=== PATIENT | male | born 1990 | race Caucasian/White ===

== ENCOUNTER 2016-05-22 16:22 | Emergency (ER) | payer OTHER ==
[~2016-05-22] VITALS: Ht 185.4 cm; Wt 83.2 kg
[2016-05-22 18:37] VITALS: BP 145/63
== END 2016-05-22 18:16 | disposition home or self-care (01) ==
LOC: EME 16:22
PROC: 0HQEXZZ Repair Left Lower Arm Skin, External Approach (ICD-10-PCS; principal; 2016-05-22)
DX: S51.812A Laceration without foreign body of left forearm, initial encounter (principal); W27.8XXA Contact with other nonpowered hand tool, initial encounter; Y99.0 Civilian activity done for income or pay; F17.200 Nicotine dependence, unspecified, uncomplicated
CPT/HCPCS: 99281; 99284